=== PATIENT | male | born 1975 | race Two or more races ===

== ENCOUNTER 2018-04-13 09:09 | Emergency (ER) | payer MEDICAID ==
[~2018-04-13] VITALS: Ht 172.7 cm; Wt 65.8 kg
--- NOTE | 2018-04-13 09:30 | NUR ---
PT CAME IN WITH C/O FEELING DEPRESSED AND ANXIOUS. SEEN BY FOR [facility]. NOTED CALM AND COOPERATIVE. DENIES SI AT THIS MOMENT. VSS. SAFETY AND COMFORT MEASURES PROVIDED. WILL MONITOR.
[2018-04-13 09:37] LABS: BASOPHILS % (AUTO) 0.6 % (0.0-2.0); EOSINOPHILS % (AUTO) 1.4 % (0.0-6.0); HEMATOCRIT 37 % (39-51); HEMOGLOBIN 12.6 g/dL (13.5-17.5); LYMPHOCYTES # (AUTO) 1.5 /CMM (0.8-4.8); LYMPHOCYTES % (AUTO) 25.1 % (20.0-44.0); MEAN CORPUSCULAR HEMOGLOBIN 33 PG (26.0-33.0); MEAN CORPUSCULAR HGB CONC 34 g/dl (31.0-36.0); MEAN CORPUSCULAR VOLUME 98 fL (80-96); MONOCYTES # (AUTO) 0.6 /CMM (0.1-1.30); MONOCYTES % (AUTO) 9.5 % (2.0-12.0); NEUTROPHILS # (AUTO) 3.7 /CMM (1.8-8.9); NEUTROPHILS % (AUTO) 63.4 % (43.0-81.0); PLATELET COUNT (AUTO) 154 /CMM (150-450); RDW COEFFICIENT OF VARIATION 11.8 (11.5-15.0); RED BLOOD CELL COUNT(AUTO) 3.81 MIL/uL (4.5-6.0); WHITE BLOOD COUNT (AUTO) 5.9 K/uL (4.3-11.0)
[2018-04-13 09:44] LABS: CALCIUM, SERUM 8.1 mg/dL (8.5-10.1); CARBON DIOXIDE 31 mmol/L (21-32); CHLORIDE 100 mmol/L (98-107); CREATININE 0.8 mg/dL (0.6-1.3); GLUCOSE 109 mg/dL (74-106); POTASSIUM 3.3 mmol/L (3.5-5.1); SODIUM SERUM 138 mmol/L (136-145); UREA NITROGEN, BLOOD 8 mg/dL (7-18)
[2018-04-13 09:58] LABS: ACETAMINOPHEN 0 ug/ml (10-30); ALANINE AMINOTRANSFERASE 170 U/L (12-78); ALBUMIN 3.2 g/dL (3.4-5.0); ALKALINE PHOSPHATASE 89 U/L (46-116); ASPARTATE AMINOTRANSFERASE 333 U/L (15-37); BILIRUBIN,DIRECT 0.3 mg/dL (0.0-0.2); BILIRUBIN,TOTAL 0.6 mg/dL (0.2-1.0); SALICYLATE 2.8 mg/dL (2.8-20.0); TOTAL PROTEIN, SERUM 7.1 g/dL (6.4-8.2)
[2018-04-13 09:59] LABS: ALCOHOL, BLOOD < 3 mg/dL (0-0)
--- NOTE | 2018-04-13 10:40 | NUR ---
PT STILL UNABLE TO GIVE URINE SAMPLE. PROVIDED WITH WATER.
--- NOTE | 2018-04-13 11:00 | NUR ---
[facility] ADMISSIONS DEAN AT BS FOR EVAL.
[2018-04-13 11:30] VITALS: BP 122/84
[2018-04-13 11:47] LABS: APPEARANCE,URINE Clear (CLEAR); BILIRUBIN,URINE SMALL (NEGATIVE); BLOOD, URINE Negative Ery/uL (NEGATIVE); COLOR,URINE Dark Yellow (YELLOW); KETONES,URINE Trace (NEGATIVE); LEUKOCYTE ESTERASE ,URINE Trace (NEGATIVE); NITRITE, URINE Negative (NEGATIVE); PH,URINE 6.5 (5.0-8.0); PROTEIN,URINE Trace mg/dl (NEGATIVE); UGLUCOSE Negative (NEGATIVE); UROBILINOGEN,URINE >=8.0 EU/dL (0.2)
[2018-04-13 11:51] LABS: BACTERIA,URINE Few /HPF (None Seen); RBC,URINE 0-2 /HPF (0-2); SQUAMOUS EPITHELIAL CELL,UR Moderate /HPF (None Seen)
--- NOTE | 2018-04-13 12:18 | NUR ---
PT ACCEPTED AT [facility] - DR ARCEO. NUMBER FOR REPORT [phone]; EXT. [phone]
--- NOTE | 2018-04-13 12:24 | NUR ---
CALLED [facility] FOR BLS TRANSPORT. SPOKE WITH NIKKI. ETA 1 HOUR; TRIP#[id number]
--- NOTE | 2018-04-13 12:48 | NUR ---
REPORT GIVEN TO [facility] STAFF
--- NOTE | 2018-04-13 12:53 | NUR ---
REPORT GIVEN TO NATALIYA MARIE OF [facility].
== END 2018-04-13 12:55 ==
LOC: ER 09:10
DX: F15.90 Other stimulant use, unspecified, uncomplicated (principal); F31.9 Bipolar disorder, unspecified; F17.200 Nicotine dependence, unspecified, uncomplicated; Z59.0 Homelessness
CPT/HCPCS: 36415; 80048; 80076; 80305; 80329; 81001; 85025; 87086; 99285; A4606; G0480 ×2; Z7610; 81000-TC